=== PATIENT | male | born 1995 | race African-American/Black ===

== ENCOUNTER 2024-01-01 12:21 | Emergency (ER) | payer OTHER ==
[~2024-01-01] VITALS: Ht 180.3 cm; Wt 77.3 kg
[2024-01-01 13:08] LABS: BASOPHILS % (AUTO) 0.5 % (0-1); EOSINOPHILS # (AUTO) 0.3 X10'3 (0-0.9); EOSINOPHILS % (AUTO) 5.4 % (0-6); HEMOGLOBIN 15.5 g/dl (14.0-17.9); LYMPHOCYTES # (AUTO) 1.3 X10'3 (1.1-4.8); LYMPHOCYTES % (AUTO) 21.4 % (21-51); MEAN CORPUSCULAR HGB CONC 34.5 g/dL (33.0-36.5); MEAN CORPUSCULAR VOLUME 92.7 FL (78-98); MEAN PLATELET VOLUME 8.9 FL (7.4-10.4); MONOCYTES # (AUTO) 0.6 X10'3 (0-0.9); MONOCYTES % (AUTO) 9.3 % (2-12); NEUTROPHILS # (AUTO) 3.8 X10'3 (1.8-7.7); NEUTROPHILS % (AUTO) 63.4 % (42-75); PLATELET COUNT 205 X10'3 (140-440); RED BLOOD COUNT 4.85 X10'6 (4.70-6.10); RED CELL DISTRIBUTION WIDTH 13.4 % (11.5-14.5)
[2024-01-01 13:09] LABS: ALANINE AMINOTRANSFERASE 18 U/L (12-78); ALBUMIN 3.7 G/DL (3.4-5.0); ALKALINE PHOSPHATASE 77 IU/L (46-116); ANION GAP 4 (8-16); ASPARTATE AMINO TRANSFERASE 10 U/L (10-37); BILIRUBIN,TOTAL 2.1 MG/DL (0.1-1.0); BLOOD UREA NITROGEN 18 MG/DL (7-18); CHLORIDE 101 MMOL/L (99-107); CREATININE 0.82 MG/DL (0.60-1.10); GLUCOSE 91 MG/DL (70-104); POTASSIUM 3.9 MMOL/L (3.5-5.1); SODIUM 137 MMOL/L (135-145); TOTAL CARBON DIOXIDE 32.1 MMOL/L (24-32); TOTAL PROTEIN 7.3 G/DL (6.4-8.2); eGFR > 90 ML/MIN
[2024-01-01] MEDS ORDERED: SULF-14 PO (13:32)
[2024-01-01] MEDS ORDERED: CEPH-585 PO (13:32)
[2024-01-01] MEDS: cephalexin 250mg capsule PO ONE (13:38)
[2024-01-01] MEDS: sulfamethoxazole/trimethoprim DS (800/160mg) tablet PO ONE (13:38)
[2024-01-01 13:43] VITALS: BP 136/74; PULSE 64; RESP 16; TEMP 97.6; O2SAT 98
== END 2024-01-01 13:46 | disposition home or self-care (01) ==
LOC: ER 12:21
DX: L08.9 Local infection of the skin and subcutaneous tissue, unspecified (principal); M79.641 Pain in right hand; Z88.1 Allergy status to other antibiotic agents
CPT/HCPCS: 36415; 73130; 80053; 85025; 99284